=== PATIENT | female | born 1945 | race Asian ===

== ENCOUNTER 2016-09-05 07:04 | Day surgery (SDC) | payer MEDICARE, OTHER ==
[~2016-09-05] VITALS: Ht 154.9 cm; Wt 59.1 kg
[~2016-09-05 07:04] MED LIST: ASPI-1093 PO; ATOR40TA28 PO; SODIUM CHLORIDE 0.9% 1,000 ML IV ONE
[2016-09-05] MEDS ORDERED: ESOM20CA31 PO (07:36)
[2016-09-05] MEDS ORDERED: ATOR20TA86 PO (07:36)
[2016-09-05] MEDS ORDERED: ALEN70TA48 PO (07:36)
[2016-09-05] MEDS ORDERED: MOME13HF IH (07:36)
[2016-09-05] MEDS ORDERED: SODIUM CHLORIDE 0.9% 1,000 ML IV ONE (07:36)
[2016-09-05] MEDS ORDERED: ESCI10TA PO (07:36)
[2016-09-05] MEDS ORDERED: LOSA50TA37 PO (07:36)
[2016-09-05] MEDS ORDERED: MECL-111 PO (07:36)
[2016-09-05] MEDS ORDERED: MONT10TA21 PO (07:36)
[2016-09-05] MEDS ORDERED: MEMA10TA11 PO (07:36)
[2016-09-05] MEDS ORDERED: LINA5TAB PO (07:36)
[2016-09-05] MEDS ORDERED: BUDE10.2 IH (07:36)
[2016-09-05] MEDS ORDERED: MIDAZOLAM HCL 2 MG/2 ML VIAL ONE (07:44)
[2016-09-05] MEDS ORDERED: FentaNYL CITRATE-PF 100 MCG/2 ML VIAL ONE (07:44)
[2016-09-05 08:11] LABS: GLUCOSE,POINT OF CARE 113 MG/DL (70-110)
[2016-09-05] MEDS ORDERED: MethylPREDNISolone SOD SUCC 125 MG/2 ML VIAL IVP ONE (08:15)
[2016-09-05] MEDS ORDERED: MethylPREDNISolone SOD SUCC 125 MG/2 ML VIAL ONE (10:09)
[2016-09-05] MEDS ORDERED: LIDOCAINE HCL 2% 30 ML JELLY TP ONE (17:02)
[2016-09-05] MEDS ORDERED: ALBUTEROL SULFATE 2.5 MG/0.5 ML NEB SOLUTION NEB ONE (17:02)
[2016-09-05] MEDS ORDERED: BENZOCAINE 20% 50 MCG/SPRAY 57 GM TP ONE (17:02)
[2016-09-05] MEDS ORDERED: LIDOCAINE HCL 4% 50 ML SOLUTION TP ONE (17:02)
[2016-09-05] MEDS ORDERED: OXYGEN THERAPY IH SCH (20:00)
== END 2016-09-05 11:15 | disposition home or self-care (01) ==
LOC: SURGERY 07:04
PROVIDERS: ATTEND Internal Medicine Critical Care Medicine
DX: J38.4 Edema of larynx (principal); B37.0 Candidal stomatitis; J45.909 Unspecified asthma, uncomplicated; E78.00 Pure hypercholesterolemia, unspecified; E11.9 Type 2 diabetes mellitus without complications; F03.90 Unspecified dementia, unspecified severity, without behavioral disturbance, psychotic disturbance, mood disturbance, and anxiety
CPT/HCPCS: 31623; 31624; 71010; 82962; 87015; 87070; 87101; 87205; 87220; J2250; J2930; J3010; J7030; 87147; 88108; 88312